=== PATIENT | male | born 1980 | race Caucasian/White ===

== ENCOUNTER 2023-04-27 14:40 | Inpatient (IN) | payer SELFPAY ==
[2023-04-27] VITALS (11 sets, daily range): BP systolic 158–181; BP diastolic 86–109; PULSE 77–106; RESP 14–24; TEMP 36.7–36.9; O2SAT 93–98; BMI 50.2; BMI 51.9
--- NOTE | 2023-04-27 14:47 | ECG_ITS ---
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 Measurements Intervals [place] Rate: 75 P: 49 [place]: 139 QRS: 0 QRSD: 104 T: -32 QT: 385 QTc: 430 Interpretive Statements SINUS RHYTHM Diffuse nonspecific T wave change MINIMAL VOLTAGE CRITERIA FOR LVH, CONSIDER NORMAL VARIANT [MEETS CRITERIA IN ONE OF: R(aVL), S(V1), R(V5), R(V5/V6)+S(V1)] NONSPECIFIC T-WAVE ABNORMALITY No previous ECG available for comparison Electronically Signed On 04-27-2023 21:12:22 PUGGER HELPER by Janel Sams M.D. [email or web address]/store/[id number] f
--- NOTE | 2023-04-27 14:47 | XR_ITS ---
WS: [id number] Exam: XR chest 1V portable [id number] Date/Time of Exam: 04/27/2023 2:47 PM Reason For Exam: cp No priors. Findings: The lungs are clear and fully expanded. Costophrenic angles are sharp. No infiltrates. Bronchovascula r relief appears normal. Cardiac silhouette is unremarkable. Bony elements are intact. IMPRESSION: Unremarkable chest radiograph.
--- NOTE | 2023-04-27 14:51 | CT_ITS ---
WS: [id number] CT ABDOMEN AND PELVIS WITH CONTRAST HISTORY: abd pain TECHNIQUE: Imaging performed of the abdomen and pelvis with IV contrast. Single phase imaging of the abdomen. Coronal and sagittal reformats are submitted. All CT scans at [facility] use at [facility] one of these dose optimization techniques: automated exposure control; mA and/or kV adjustment per patient size (includes targeted exams where dose is matched to clinical indication); or iterative re construction. IV CONTRAST: Omnipaque 350; 100 mL IV. Oral contrast: No DLP: 1380.03 mGy.cm COMPARISON: None available. Lower thorax: Lung bases are clear. Heart is normal size. No hiatal hernia. Liver/biliary system: Mild hepatic steatosis. No mass. Gallbladder: Prior cholecystectomy. Pancreas: Mildly edematous and enlarged pancreas. Mild diffuse peripancreatic fat stranding and a sma ll amount of fluid. Greater amount of fluid near the duodenal C-loop. No duct dilatation. Spleen: Normal size spleen. No mass or infarct. Adrenal glands: Normal. Right kidney: Cortical cysts 1.9 cm lower pole. No obstruction. Left kidney: 2 cortical cysts in the upper pole. The largest 1.3 cm. No obstruction. Aorta: Normal. Lymphadenopathy: None. Free fluid: No free fluid in the pelvis. GI tract: Mild thickening and hyperemia involving the antrum and duodenal C-loop adjacent to the acut e pancreatitis. Normal appendix. Abdominal wall: Unremarkable abdominal wall. No hernia. Pelvis: No free fluid or adenopathy within the pelvis. Bones: Mild anterior wedging of L2 and T11. IMPRESSION: 1. Mild acute pancreatitis. Normal enhancement of the pancreas with no necrosis or hemorrhage. No ps eudocyst. 2. Mild inflammatory involvement of the antrum of the stomach and duodenal C-loop related to the francis creatitis. 3. Prior cholecystectomy.
--- NOTE | 2023-04-27 14:57 | ED_ITS ---
HPI - Chest Pain 2 General: Chief Complaint: Chest Pain Stated Complaint: epigastric pain Time Seen by Provider: 04/27/23 14:44 Source: patient Mode of arrival: ambulatory Limitations: no limitations History of Present Illness: 43-year-old male states that he started having severe epigastric abdominal pain this morning after eating breakfast. He states it is very sharp pain right in the center of his abdomen rates it a 8 out of 10 he had nausea the pain denies any vomiting. He states he had GI issues since he started taking Ozempic he states he stopped it 2 weeks ago but he still been having GI distress. He denies any chest pain denies any fevers Associated symptoms: Reports abdominal pain and nausea; Deny dyspnea, fever(s) or vomiting Review of Systems 2 Const: Denies: fever(s), chills, body aches or change in appetite ENMT: Denies: throat pain or dental pain Card: Denies: chest pain Resp: Denies: dyspnea GI: Reports: abdominal pain and nausea; Denies: vomiting or diarrhea Musc: Denies: neck pain or back pain Skin/Breast: Denies: rash Neuro: Denies: headache(s) Physical Exam 2 Const: COMMON NORMALS: no acute distress, patient oriented x3 and healthy appearing HENMT: COMMON NORMALS: normocephalic and atraumatic HEAD & SCALP: n ormocephalic and atraumatic Neck/C-Spine: COMMON NORMALS: full ROM and supple Chest: COMMONS NORMALS: normal inspection of the chest and normal palpation of entire chest wall Resp: COMMON NORMALS: normal respiratory effort, No retractions, No use of accessory muscles and clear to auscultation bilaterally AUSCULTATION: clear to auscultation bilaterally Cardio: COMMON NORMALS: regular rate, regular rhythm and No murmurs present (Cardio) RATE: regular rate RHYTHM: regular rhythm GI: COMMON NORMALS: Normal to inspection, nondistended, normoactive bowel sounds present, Soft to palpation and no masses PALPATION: Yes Soft to palpation and Yes Tenderness to palpation present (GI) (epigastric tenderness) Extremity: COMMON NORMALS: normal to inspection and full ROM Neuro: COMMON NORMALS: patient oriented x3, moves all extremities and no focal motor deficits Psych: COMMON NORMALS: mental status grossly normal, Normal thought process present and cooperative THOUGHT PROCESS: Normal thought process present Skin: COMMON NORMALS: no rashes or lesions noted and no wounds GENERAL SKIN EXAM: no rashes or lesions noted Course 2 Vital Signs: Vital signs: Vital Signs Temperature 98.1 F 04/27/23 14:41 Pulse Rate 99 04/27/23 16:00 Respiratory Rate 18 04/27/23 16:52 Blood Pressure 172/101 04/27/23 16:00 Pulse Oximetry 96 04/27/23 16:52 Oxygen Delivery Me thod Room Air 04/27/23 16:00 MDM - Chest Pain Medical Decision Making Patient presents here with pancreatitis seen on CT as an elevated lipase here as well I spoke to the hospitalist and will admit Medical Records I reviewed the patient's medical records. Lab Data I reviewed the patient's lab results. 04/27/23 15:10 04/27/23 15:10 Laboratory Results WBC 10.61 10^3/uL (3.29-11.43) 04/27/23 15:10 RBC 5.01 10^6/uL (3.85-5.65) 04/27/23 15:10 Hgb 15.20 g/dL (11.27-16.99) 04/27/23 15:10 Hct 44.6 % (37-53) 04/27/23 15:10 MCV 89.0 fl (82-101) 04/27/23 15:10 MCH 30.3 pg (27-33) 04/27/23 15:10 MCHC 34.1 g/dL (30-55) 04/27/23 15:10 RDW 12.3 % (12.1-15.1) 04/27/23 15:10 Plt Count 268 10^3/cmm (157-399) 04/27/23 15:10 MPV 9.7 fL (7.4-10.4) 04/27/23 15:10 Neut % (Auto) 66.8 % 04/27/23 15:10 Lymph % (Auto) 24.3 % 04/27/23 15:10 [place] % (Auto) 7.1 % 04/27/23 15:10 Eos % (Auto) 0.6 % 04/27/23 15:10 Baso % (Auto) 0.5 % 04/27/23 15:10 Neut # (Auto) 7.10 10^3/uL (1.8-7.7) 04/27/23 15:10 Lymph # (Auto) 2.6 10^3/uL (0.8-4.8) 04/27/23 15:10 [place] # (Auto) 0.8 10^3/uL (0.2-0.9) 04/27/23 15:10 Eos # (Auto) 0.1 10^3/uL (0.0-0.8) 04/27/23 15:10 Baso # (Auto) 0.1 10^3/uL (0.0-0.1) 04/27/23 15:10 Nucleated RBC % (auto) 0 % 04/27/23 15:10 Nucleated RBCs # 0.0 /100WBC 04/27/23 15:10 Sodium 136 mmol/L (136-145) 04/27/23 15:10 Potassium 4.3 mmol/L (3.5-5.1) 04/27/23 15:10 Chloride 98 mmol/L (98-107) 04/27/23 15:10 Carbon Dioxide 24 mmol/L (22-29) 04/27/23 15:10 Anion Gap 18.3 (5-19) 04/27/23 15:10 BUN 9 mg/dL (6-20) 04/27/23 15:10 Creatinine 0.8 mg/dL (0.7-1.2) 04/27/23 15:10 GFR Calculation 105.0 mL/min (90-130) 04/27/23 15:10 Glucose 374 mg/dL (65-115) H 04/27/23 15:10 Calculated Osmolality 296 mOsm/kg (285-295) H 04/27/23 15:10 Calcium 8.8 mg/dL (8.5-10.5) 04/27/23 15:10 Total Bilirubin 1.1 mg/dL (0.15-1.2) 04/27/23 15:10 AST 422 U/L (0-40) H 04/27/23 15:10 ALT 456 U/L (0-41) H 04/27/23 15:10 Alkaline Phosphatase 165 U/L (40-130) H 04/27/23 15:10 Troponin T Baseline < 6 ng/L (0-15) 04/27/23 15:10 Total Protein 6.6 g/dL (6.6-8.7) 04/27/23 15:10 Albumin 4.1 g/dL (3.5-5.2) 04/27/23 15:10 Globulin 2.5 g/dL (1.3-4.6) 04/27/23 15:10 Triglycerides 303 mg/dL (0-150) H 04/27/23 15:10 All radiology interpretation(s) finalized by discharge EKG Data EKG 1: I personally reviewed and interpreted this EKG as follows: EKG interpretation date: 04/27/23 EKG interpretation time: 14:44 Interpretation: nsr hr [address] or t wave abnormalities qrs 104 qtc 413 Discharge Plan Discharge Patient Disposition: Admitted As Inpatient Clinical Impression: Acute pancreatitis Condition: Stable Prescriptions: No Action metformin 500 mg Tablet 1,000 mg PO BID Zyrtec 10 mg Tablet 10 mg PO DAILY lisinopril 40 mg Tablet 40 mg PO DAILY Mounjaro 2.5 mg/0.5 mL Pen Injector 2.5 mg SUBCUT Q7D Coding Level of Care Code ED Valve And Regulator Repairer for Chg Fwdesiree
[2023-04-27] MEDS: ondansetron 2 mg/ML SDV 2 mL 4 MG IVP ×2 (15:03→20:36)
[2023-04-27] MEDS: HYDROmorphone 1 mg/mL INJ 1 mL IVP ×2 (15:03→16:52)
[2023-04-27] MEDS: iohexol 350 mg/mL 500 mL Btl (per mL) IV (15:12)
[2023-04-27 15:21] LABS: Basophils # 0.1 10^3/uL (0.0-0.1); Basophils % 0.5 %; Eosinophils # 0.1 10^3/uL (0.0-0.8); Eosinophils % 0.6 %; Hematocrit 44.6 % (37-53); Lymphocytes # 2.6 10^3/uL (0.8-4.8); Lymphocytes % 24.3 %; Mean Corpuscular HGB Conc 34.1 g/dL (30-55); Mean Corpuscular Hemoglobin 30.3 pg (27-33); Mean Platelet Volume 9.7 fL (7.4-10.4); Monocytes # 0.8 10^3/uL (0.2-0.9); Monocytes % 7.1 %; Neutrophils % 66.8 %; Nucleated Red Blood Cells % 0 %; Platelet Count 268 10^3/cmm (157-399); Red Blood Count 5.01 10^6/uL (3.85-5.65); Red Cell Distribution Width 12.3 % (12.1-15.1); White Blood Count 10.61 10^3/uL (3.29-11.43)
[2023-04-27] MEDS: hyDRALAzine 20 mg/mL INJ 1 mL 10 MG IVP (15:41)
[2023-04-27 15:44] LABS: Alanine Aminotransferase 456 U/L (0-41); Albumin Level 4.1 g/dL (3.5-5.2); Alkaline Phosphatase 165 U/L (40-130); Blood Urea Nitrogen 9 mg/dL (6-20); Calcium 8.8 mg/dL (8.5-10.5); Carbon Dioxide 24 mmol/L (22-29); Chloride 98 mmol/L (98-107); Globulin 2.5 g/dL (1.3-4.6); Glucose 374 mg/dL (65-115); Osmolality Calculated 296 mOsm/kg (285-295); Sodium 136 mmol/L (136-145); Total Bilirubin 1.1 mg/dL (0.15-1.2); Total Protein 6.6 g/dL (6.6-8.7)
[2023-04-27 15:46] LABS: Anion Gap 18.3 (5-19); Aspartate Amino Transferase 422 U/L (0-40); Potassium 4.3 mmol/L (3.5-5.1)
[2023-04-27 15:58] LABS: Troponin(5th) Baseline < 6 ng/L (0-15)
--- NOTE | 2023-04-27 16:32 | ECG_ITS ---
[facility] Test Date: 2023-04-27 Pat Name: Chapito Eid Department: Room: Gender: Male Museum Docent: : 1980 Requested By: Ajay Bowie Order Number: [id number] Krystina MD: Janel Sams M.D. Measurements Intervals [place] Rate: 91 P: 48 [place]: 154 QRS: -23 QRSD: 105 T: 15 QT: 357 QTc: 440 Interpretive Statements SINUS RHYTHM BORDERLINE LEFT AXIS DEVIATION [QRS AXIS < -20] MODERATE VOLTAGE CRITERIA FOR LVH, CONSIDER NORMAL VARIANT [MEETS CRITERIA IN ONE OF: R(aVL), S(V1), R(V5), R(V5/V6)+S(V1)] Compared to ECG 04/27/2023 14:44:26 T-wave abnormality no longer present Electronically Signed On 04-27-2023 21:17:49 CARDIAC CATH LAB RADIOLOGY TECHNOLOGIST by Janel Sams M.D. [id number]
[2023-04-27 16:38] LABS: Triglycerides 303 mg/dL (0-150)
[2023-04-27 17:14] LABS: Lipase 9469 U/L (13-60)
[2023-04-27 17:58] LABS: Troponin 5 2HR Delta 0.00001 ABS# (0-10)
--- NOTE | 2023-04-27 18:25 | P.HP_ITS ---
Providers/Chief Complaint 2 Admitting Physician: Marimar Joe MD Chief Complaint: epigastric pain History of Present Illness Chapito Eid is a 43 year old male rsm-tecfymo-xfrofnoiv diabetes, gasoline truck operator by profession, history of hypertension and diabetes, presented with chief complaint abdominal pain and discomfort. Patient stating that his symptoms started 3 weeks ago, he recently stopped taking Ozempic roughly 3 to 4 weeks ago because he was very sick a lot of GI issues, he has been experiencing dry heaves intermittent pain few hours after eating today his pain got worse that prompted a visit to the ER, patient is endorsing to eating a lot of junk food, he is under a lot of stress related to his job, in the ER he has been diagnosed with hepatitis, triglyceride 300, lipase extremely high abdominal CT scan is showing pancreatitis with sentinel loop Currently on IV fluids, Check triglyceride fasting level his last meal was around lunchtime does not might be very accurate triglyceride level No history of coronary disease Does not smoke or drink alcohol Lives with his , Review of Systems 2 Const: Denies: fever(s) Eyes: Denies: change in vision ENMT: Denies: throat pain Card: Denies: chest pain Resp: Denies: dyspnea GI: Reports: abdominal pain and nausea : Denies: flank pain Musc: Denies: neck pain Medications/Allergies Home Medications Medication Instructions Recorded Confirmed Last Taken Type cetirizine 10 mg tablet (Zyrtec) 10 mg PO DAILY 04/27/23 04/27/23 Unknown History lisinopril 40 mg tablet 40 mg PO DAILY 04/27/23 04/27/23 Unknown History metformin 500 mg tablet 1,000 mg PO BID 04/27/23 04/27/23 Unknown History tirzepatide 2.5 mg/0.5 mL 2.5 mg SUBCUT Q7D 04/27/23 04/27/23 3 Weeks Ago History subcutaneous pen injector ~04/06/23 (Carlie) Allergies Allergy/AdvReac Type Severity Reaction Status Date / Time No Known Allergies Allergy Verified 04/27/23 14:44 PFSH Acute 2 PFSH: Medical History Hypertension Diabetes Vitals/I&O/Wt Last Vital Signs Temp 98.1 F 04/27/23 14:41 Pulse 99 04/27/23 16:00 Resp 18 04/27/23 16:52 BP 172/101 04/27/23 16:00 Pulse Ox 96 04/27/23 16:52 O2 Del Method Room Air 04/27/23 16:00 Weight last 48 hrs Weight 154.221 kg Physical Exam 2 Narrative: Awake and alert Distended abdomen nontender Tenderness on deep palpation only Pleasant cooperative No signs of dehydration No sign of fluid overload S1, S2 Hypertensive Currently on room air Active emesis Data 04/27/23 15:10 04/27/23 15:10 A&P Assessment and plan (1) Acute pancreatitis: (2) Hypertension: (3) Metabolic syndrome X: (4) Hypertriglyceridemia: Plan Acute pancreatitis Could be combination of Ozempic and high triglyceride No need of insulin drip Keep him n.p.o. Start IV fluids at high rate Morphine and Dilaudid to be alternate Full code Check A1c level For hypertensive urgency will manage pain first and if his pain stays under control and blood pressure still high then we will add more antihypertensive regimen I would recommend discontinuing GLP-1 analog, Patient will need IV opioids DVT prophylaxis added Metabolic syndrome He is hypertensive morbidly obese, placed about 34 cm, diabetic, patient will need referral to obesity clinic Unfortunately he has been experiencing side effects to GLP-1 analog Attestations 2 Medical Necessity Statement*: More than 2 midnights anticipated for management of pancreatitis Diagnoses Acute pancreatitis K85.90 Hypertension I10 Metabolic syndrome X E88.810 Hypertriglyceridemia E78.1
[2023-04-27] MEDS: morphine 4 mg/mL SDV 1 mL 2 MG IVP ×2 (18:40→22:39)
[2023-04-27] MEDS: dextrose 5%-lactated ringers 1,000 ML 125 ML IV (18:43)
[2023-04-27] MEDS: enoxaparin 40 mg/0.4 mL Syringe SUBCUT (20:23)
[2023-04-27] MEDS: HYDROmorphone 1 mg/mL INJ 1 mL 0.400000000000000022 MG IVP (20:36)
[2023-04-27 20:46] LABS: Glucose Point of Care 388 mg/dL (70-110)
--- NOTE | 2023-04-27 20:47 | ECG_ITS ---
[facility] Test Date: 2023-04-27 Pat Name: Chapito iEd Department: Room: 252 Gender: Male Director Hr Communications: : 1980 Requested By: Ajay Bowie Order Number: [id number] Krystina MD: Janel Sams M.D. Measurements Intervals [place] Rate: 106 P: 46 NM: 135 QRS: -25 QRSD: 99 T: 16 QT: 329 QTc: 437 Interpretive Statements SINUS TACHYCARDIA BORDERLINE LEFT AXIS DEVIATION [QRS AXIS < -20] MODERATE VOLTAGE CRITERIA FOR LVH, CONSIDER NORMAL VARIANT [MEETS CRITERIA IN ONE OF: R(aVL), S(V1), R(V5), R(V5/V6)+S(V1)] NONSPECIFIC T-WAVE ABNORMALITY ABNORMAL RHYTHM ECG Compared to ECG 04/27/2023 16:32:15 T-wave abnormality now present Sinus rhythm no longer present Electronically Signed On 04-27-2023 21:18:07 CENTER PUNCH OPERATOR by Janel Sams M.D. [email or web address] medical [id number]
--- NOTE | 2023-04-27 21:46 | PC.NURSE ---
Spoke with regarding patients elevated accucheck 388, not due for insulin coverage till tomorrow morning. ordered to give sliding scale coverage now. Made aware of elevated BP, improved after pain medication but still elevated 169/107. said continue to monitor BP for now.
[2023-04-27] MEDS: insulin lispro 100 unit/1 mL 12 UNIT SUBCUT (21:51)
[2023-04-27 21:57] LABS: Troponin 5 6HR Delta 0.00001 ng/L (0-12)
[2023-04-27 22:55] LABS: Estmated Average Glucose 197; Hemoglobin A1C 8.5 % (4.0-6.0)
[2023-04-28] VITALS (10 sets, daily range): BP systolic 162–184; BP diastolic 81–104; PULSE 84–101; RESP 16–24; TEMP 36.7–37; O2SAT 91–94; BMI 52.0
[2023-04-28] MEDS: HYDROmorphone 1 mg/mL INJ 1 mL 0.400000000000000022 MG IVP ×3 (00:04→08:47)
[2023-04-28] MEDS: morphine 4 mg/mL SDV 1 mL 2 MG IVP (02:37)
[2023-04-28] MEDS: dextrose 5%-lactated ringers 1,000 ML 125 ML IV ×2 (02:37→10:40)
[2023-04-28 04:22] LABS: Basophils % 0.2 %; Eosinophils % 0.1 %; Hematocrit 45.5 % (37-53); Lymphocytes # 1.6 10^3/uL (0.8-4.8); Lymphocytes % 14.3 %; Mean Corpuscular HGB Conc 34.1 g/dL (30-55); Mean Corpuscular Hemoglobin 30.2 pg (27-33); Mean Corpuscular Volume 88.5 fl (82-101); Mean Platelet Volume 9.5 fL (7.4-10.4); Monocytes # 0.7 10^3/uL (0.2-0.9); Monocytes % 5.9 %; Neutrophils # 8.76 10^3/uL (1.8-7.7); Neutrophils % 79.1 %; Nucleated Red Blood Cells % 0 %; Platelet Count 300 10^3/cmm (157-399); Red Blood Count 5.14 10^6/uL (3.85-5.65); Red Cell Distribution Width 12.7 % (12.1-15.1); White Blood Count 11.06 10^3/uL (3.29-11.43)
[2023-04-28 04:41] LABS: Alanine Aminotransferase 415 U/L (0-41); Albumin Level 3.7 g/dL (3.5-5.2); Alkaline Phosphatase 128 U/L (40-130); Anion Gap 16.2 (5-19); Aspartate Amino Transferase 137 U/L (0-40); Blood Urea Nitrogen 12 mg/dL (6-20); C Reactive Protein 16.5 mg/L (0.0-4.9); Calcium 8.5 mg/dL (8.5-10.5); Carbon Dioxide 24 mmol/L (22-29); Chloride 99 mmol/L (98-107); Creatinine Clr Calc Pharmacy 202.3109; Globulin 2.8 g/dL (1.3-4.6); Glomerular Filtration Rate 122.5 mL/min (90-130); Glucose 311 mg/dL (65-115); Magnesium 1.7 mg/dL (1.7-2.3); Osmolality Calculated 292 mOsm/kg (285-295); Phosphorus 4.7 mg/dL (2.5-4.5); Potassium 4.2 mmol/L (3.5-5.1); Sodium 135 mmol/L (136-145); Total Bilirubin 0.7 mg/dL (0.15-1.2); Total Protein 6.5 g/dL (6.6-8.7); Triglycerides 320 mg/dL (0-150)
[2023-04-28 06:51] LABS: Glucose Point of Care 318 mg/dL (70-110)
[2023-04-28] MEDS: insulin lispro 100 unit/1 mL SUBCUT ×2 (08:46→12:19)
--- NOTE | 2023-04-28 09:39 | PC.CHAP ---
Pastoral Care Encounter/Spiritual Assessment Type of Contact [] Declined dry charge process attendant visit [] Patient/Family/Request visit [] Outpatient visit [] Follow-up visit [] Physician referral [] Code/Alert [] Routine visit [] Staff referral [] Actively dying [] Patient sleeping [] Family support [] [] Out of room [] Palliative care [] [x] Receiving care in room [] Pre-surgical visit [] Trauma [] Long length of stay [] ICU visit [] Other: Relational/Emotional Strength [] Patient feels connected with others/family/visitors/staff [] Distress [] Loneliness/isolation [] Abandonment Spirituality of Patient [] Person of Shy [] Attends Restoration of their Shy [] Believes in Prayer [] Reads Bible or Confucianism materials [] There are Spiritual issues to be addressed Tail End Rider Interventions [] Prayer [] Active listening [] Non-anxious presence [] Spiritual/emotional support [] Crisis/trauma care [] Spiritual counseling [] Bereavement support [] Provided bereavement packet [] Provided Bible/devotional materials [] Provided toy/stuffed animal, coloring book to patient or family member [] Provided Communion [] Anointing/[place] [] Salvation [] Completed spiritual assessment [] Other: Impact on Illness or Injury [] Angry [] Fearful [] Anxious [] Often cries [] Exhaustion [] Unable to work [] Unable to attend catholic [] Unable to walk/stand [] Unable to read [] Unable to drive [] Unable to eat/drink [] Unable to sleep [] Unable to be with family [] Patient intubated [] Other: Summary Time spent with patient
[2023-04-28] MEDS: acetaminophen 500 mg Tablet PO (10:45)
--- NOTE | 2023-04-28 11:09 | P.PN_ITS ---
Subjective 2 Subjective: Stating that he is still nauseous He would like to Zyrtec I will start clear liquid diet Vitals/I&O/Wt Last Vital Signs Temp 98.1 F 04/28/23 04:00 Pulse 89 04/28/23 08:00 Resp 18 04/28/23 08:47 BP 175/97 04/28/23 08:00 Pulse Ox 94 04/28/23 08:00 O2 Del Method Room Air 04/28/23 08:00 04/27/23 04/28/23 04/28/23 22:59 06:59 14:59 Intake Total 360 / 360 1347.5 / 1707.5 1000 / 1000 Output Total 700 / 700 550 / 1250 Balance -340 / -340 797.5 / 457.5 1000 / 1000 Weight last 48 hrs Weight 159.665 kg Weight 159.483 kg Weight 154.221 kg Physical Exam 2 Narrative: No active vomiting No rigidity or guarding or tenderness on abdominal palpation S1, S2 Hypertensive Currently on room air at the bedside GCS 15 Data 04/28/23 04:12 04/28/23 04:12 A&P Assessment and plan (1) Hypertension: (2) Hypertriglyceridemia: (3) Metabolic syndrome X: (4) Acute pancreatitis: Plan Plan to discharge over the weekend Advance diet to clear liquids Moderate triglyceride I have asked patient to [facility] [place] [facility] and Ozempic should be discontinued Change IV fluids to LR instead of D5 LR If he is tolerating diet not vomiting and pain is under control we might be able to discharge him over the weekend For hypertriglyceridemia will recommend atorvastatin Full code Attestations 2 Medical Necessity Statement*: Continue medical management Diagnoses Hypertension I10 Hypertriglyceridemia E78.1 Metabolic syndrome X E88.810 Acute pancreatitis K85.90
[2023-04-28] MEDS: cetirizine 10 mg Tablet PO (11:24)
[2023-04-28 11:38] LABS: Glucose Point of Care 317 mg/dL (70-110)
[2023-04-28] MEDS: lactated ringers 1,000 ML 100 ML IV (12:01)
--- NOTE | 2023-04-28 13:02 | PM.DCS ---
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 He is tolerating his diet. He was counseled not to drive while taking opioids. No sign of necrotic pancreas or pseudocyst. [place] loop he is not showing any signs of worsening abdominal pain or active vomiting. Physical Exam Narrative: No active vomiting No rigidity or guarding or tenderness on abdominal palpation S1, S2 Hypertensive Currently on room air at the bedside GCS 15 Discharge Data Studies Completed and Pending Completed Studies During Hospitalization Category Date Time Status CT abdomen pelvis w con* [id number] Stat Cat Scan 04/27/23 14:51 Completed XR chest 1V portable [id number] Stat Exams 04/27/23 14:47 Completed Pending at discharge Category Date Time Status CMP [Comprehensive Metabolic Panel] AM LABS Lab 04/29/23 04:00 Ordered Complete Blood Count w/Auto AM LABS Lab 04/29/23 04:00 Ordered Laboratory Results WBC 11.06 10^3/uL (3.29-11.43) 04/28/23 04:12 RBC 5.14 10^6/uL (3.85-5.65) 04/28/23 04:12 Hgb 15.50 g/dL (11.27-16.99) 04/28/23 04:12 Hct 45.5 % (37-53) 04/28/23 04:12 MCV 88.5 fl (82-101) 04/28/23 04:12 MCH 30.2 pg (27-33) 04/28/23 04:12 MCHC 34.1 g/dL (30-55) 04/28/23 04:12 RDW 12.7 % (12.1-15.1) 04/28/23 04:12 Plt Count 300 10^3/cmm (157-399) 04/28/23 04:12 MPV 9.5 fL (7.4-10.4) 04/28/23 04:12 Neut % (Auto) 79.1 % 04/28/23 04:12 Lymph % (Auto) 14.3 % 04/28/23 04:12 [place] % (Auto) 5.9 % 04/28/23 04:12 Eos % (Auto) 0.1 % 04/28/23 04:12 Baso % (Auto) 0.2 % 04/28/23 04:12 Neut # (Auto) 8.76 10^3/uL (1.8-7.7) H 04/28/23 04:12 Lymph # (Auto) 1.6 10^3/uL (0.8-4.8) 04/28/23 04:12 [place] # (Auto) 0.7 10^3/uL (0.2-0.9) 04/28/23 04:12 Eos # (Auto) 0.0 10^3/uL (0.0-0.8) 04/28/23 04:12 Baso # (Auto) 0.0 10^3/uL (0.0-0.1) 04/28/23 04:12 Nucleated RBC % (auto) 0 % 04/28/23 04:12 Nucleated RBCs # 0.0 /100WBC 04/28/23 04:12 Sodium 135 mmol/L (136-145) L 04/28/23 04:12 Potassium 4.2 mmol/L (3.5-5.1) 04/28/23 04:12 Chloride 99 mmol/L (98-107) 04/28/23 04:12 Carbon Dioxide 24 mmol/L (22-29) 04/28/23 04:12 Anion Gap 16.2 (5-19) 04/28/23 04:12 BUN 12 mg/dL (6-20) 04/28/23 04:12 Creatinine 0.7 mg/dL (0.7-1.2) 04/28/23 04:12 GFR Calculation 122.5 mL/min (90-130) 04/28/23 04:12 Glucose 311 mg/dL (65-115) H 04/28/23 04:12 POC Glucose 317 mg/dL (70-110) H 04/28/23 11:24 Estimat Average Glucose 197 04/27/23 15:10 Hemoglobin A1c 8.5 % (4.0-6.0) H 04/27/23 15:10 Calculated Osmolality 292 mOsm/kg (285-295) 04/28/23 04:12 Calcium 8.5 mg/dL (8.5-10.5) 04/28/23 04:12 Phosphorus 4.7 mg/dL (2.5-4.5) H 04/28/23 04:12 Magnesium 1.7 mg/dL (1.7-2.3) 04/28/23 04:12 Total Bilirubin 0.7 mg/dL (0.15-1.2) 04/28/23 04:12 AST 137 U/L (0-40) H 04/28/23 04:12 ALT 415 U/L (0-41) H 04/28/23 04:12 Alkaline Phosphatase 128 U/L (40-130) 04/28/23 04:12 Troponin T Baseline < 6 ng/L (0-15) 04/27/23 15:10 Troponin T 120 Minute 6.00 ng/L (0-15) 04/27/23 17:02 Delta Troponin T 0.23807 ABS# (0-10) 04/27/23 17:02 Troponin T Hi Sens 6Hr 6.00 ng/L (0-15) 04/27/23 21:22 Troponin T Hi Sens 6Hr Delta 0.64272 ng/L (0-12) 04/27/23 21:22 C-Reactive Protein 16.5 mg/L (0.0-4.9) H 04/28/23 04:12 Total Protein 6.5 g/dL (6.6-8.7) L 04/28/23 04:12 Albumin 3.7 g/dL (3.5-5.2) 04/28/23 04:12 Globulin 2.8 g/dL (1.3-4.6) 04/28/23 04:12 Triglycerides 320 mg/dL (0-150) H 04/28/23 04:12 Lipase 9469 U/L (13-60) H 04/27/23 15:10 Vitals Last Vital Signs Temp 98.1 F 04/28/23 11:25 Pulse 96 04/28/23 11:25 Resp 17 04/28/23 11:25 BP 162/81 04/28/23 11:25 Pulse Ox 91 04/28/23 11:25 O2 Del Method Room Air 04/28/23 11:25 Discharge Plan Discharge Patient Disposition: Home Condition: Stable Prescriptions: New hydrocodone-acetaminophen 5-325 mg tablet 1 tab PO DAILY PRN (Reason: pain) Qty: 14 0RF Continued metformin 500 mg Tablet 1,000 mg PO BID Zyrtec 10 mg Tablet 10 mg PO DAILY lisinopril 40 mg Tablet 40 mg PO DAILY Discontinued Mounjaro 2.5 mg/0.5 mL Pen Injector 2.5 mg SUBCUT Q7D Discharge Orders: Discharge Order (Routine); Ordered 04/28/23 Ordered By: Marimar Joe Patient Instructions: Opioid Safety Activity Restrictions/Additional Instructions: Please do not take Ozempic or Mounjaro because you have suffered from pancreatitis You will need to see an diabetes manager to get a newer medication for your diabetes You can resume metformin for now You can take pain medications as on as-needed basis please do not drive your truck 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
== END 2023-04-28 15:15 | disposition home or self-care (01) | DRG 439 ==
LOC: ER 16:57 → MEDSURG 17:32
PROVIDERS: Admitting Provider Internal Medicine; Emergency Provider Emergency Medicine; Visit Provider Internal Medicine
DX: K85.90 Acute pancreatitis without necrosis or infection, unspecified (principal); Z68.43 Body mass index [BMI] 50.0-59.9, adult; I16.0 Hypertensive urgency; I10 Essential (primary) hypertension; E11.9 Type 2 diabetes mellitus without complications; Z79.84 Long term (current) use of oral hypoglycemic drugs; Z79.85 Long-term (current) use of injectable non-insulin antidiabetic drugs; E78.1 Pure hyperglyceridemia; E88.810 Metabolic syndrome; E66.01 Morbid (severe) obesity due to excess calories
CPT/HCPCS: 36415; 36416; 71045; 74177; 80053; 82962; 83036; 83690; 83735; 84100; 84478; 84484; 85025; 86140; 93005; 96372; 96374; 96375; 96376; 99285; J0360; J1170; J1650; J1815; J2270; J2405; J7120; J7121; Q9967